=== PATIENT | male | born 1955 | race Caucasian/White ===

== ENCOUNTER 2025-06-24 17:12 | Emergency (ER) | payer OTHER ==
[~2025-06-24 17:12] MED LIST: Iopamidol 300 61% 100 ML VIAL FS ONE
[2025-06-24] MEDS ORDERED: Ketorolac Tromethamine 30 MG (1 mL) VIAL ONE (18:08)
[2025-06-24] MEDS ORDERED: Ipratropium Bromide 2.5 ml Neb ONE ×2 (18:14→19:26)
[2025-06-24] MEDS ORDERED: Albuterol 2.5 MG (0.5 mL) NEB ONE ×2 (18:14→19:26)
[2025-06-24 18:22] LABS: #Basophils 0.04 10x3/uL (0.0-0.2); #Eosinophils 0.09 10x3/uL (0.0-0.5); #Monocytes 1.18 10x3/uL (0.0-1.1); #Neutrophils 5.71 10x3/uL (1.5-8.4); %Basophils 0.5 % (0.0-2.0); %Eosinophils 1.0 % (0.0-6.0); %Lymphocytes 18.8 % (18.0-47.0); %Monocytes 13.6 % (0.0-10.0); %Neutrophils 65.6 % (40.0-75.0); Hematocrit 24.7 % (38.8-50.0); Hemoglobin 7.7 g/dL (13.5-17.5); Mean Corpuscular Hemoglobin 23.5 pg (27.0-33.0); Mean Corpuscular Volume 75.5 fL (81.2-95.1); Platelet Count 300 10x3/uL (150-450); Red Blood Cell (RBC) Count 3.27 10x6/uL (4.32-5.72); White Blood Cell (WBC) Count 8.69 10x3/uL (3.5-10.5)
[2025-06-24 18:39] LABS: ALT (SGPT) 32 U/L (Less than 45); AST (SGOT) 50 U/L (11-34); Albumin 4.3 g/dL (3.1-4.5); Alkaline Phosphatase 54 U/L (40-110); Anion Gap 13 mmol/L (10-20); BUN (Urea Nitrogen) 39 mg/dL (8.4-25.7); Bilirubin, Total 0.2 mg/dL (0.3-1.2); Calc. Creatinine Clearance 0 mL/min (70-130); Calcium 9.2 mg/dL (7.8-10.44); Carbon Dioxide 24 mmol/L (23-31); Chloride 99 mmol/L (98-107); Globulin 3.2 g/dL (2.4-3.5); Glucose 87 mg/dL (80-115); Potassium 4.4 mmol/L (3.5-5.1); Sodium 132 mmol/L (136-145)
[2025-06-24] MEDS ORDERED: Acetaminophen 500 MG TAB ONE (19:16)
== END 2025-06-24 20:10 | disposition home or self-care (01) ==
LOC: CSHERS 17:12
DX: J44.1 Chronic obstructive pulmonary disease with (acute) exacerbation (principal); K08.89 Other specified disorders of teeth and supporting structures; D64.9 Anemia, unspecified; R79.89 Other specified abnormal findings of blood chemistry; I10 Essential (primary) hypertension; E78.00 Pure hypercholesterolemia, unspecified; K74.60 Unspecified cirrhosis of liver; F41.9 Anxiety disorder, unspecified; F32.A Depression, unspecified; Z87.891 Personal history of nicotine dependence
CPT/HCPCS: 70487; 71046; 80053; 85025; 93005; 94644; 94645; 94760; 96374; 96375; J1885; J2919; J7611; J7644; Q9967

== ENCOUNTER 2025-07-12 14:21 | Inpatient (IN) | payer OTHER ==
[2025-07-12 15:16] LABS: #Basophils 0.03 10x3/uL (0.0-0.2); #Eosinophils 0.06 10x3/uL (0.0-0.5); #Monocytes 1.07 10x3/uL (0.0-1.1); #Neutrophils 7.24 10x3/uL (1.5-8.4); %Basophils 0.3 % (0.0-2.0); %Eosinophils 0.6 % (0.0-6.0); %Lymphocytes 12.4 % (18.0-47.0); %Monocytes 11.1 % (0.0-10.0); %Neutrophils 75.2 % (40.0-75.0); Hematocrit 18.8 % (38.8-50.0); Hemoglobin 5.8 g/dL (13.5-17.5); Mean Corpuscular Hemoglobin 23.5 pg (27.0-33.0); Mean Corpuscular Volume 76.1 fL (81.2-95.1); Platelet Count 241 10x3/uL (150-450); Red Blood Cell (RBC) Count 2.47 10x6/uL (4.32-5.72); White Blood Cell (WBC) Count 9.63 10x3/uL (3.5-10.5)
[2025-07-12 15:19] LABS: ALT (SGPT) 26 U/L (Less than 45); AST (SGOT) 30 U/L (11-34); Albumin 3.4 g/dL (3.1-4.5); Alkaline Phosphatase 49 U/L (40-110); Anion Gap 11 mmol/L (10-20); BUN (Urea Nitrogen) 19 mg/dL (8.4-25.7); Bilirubin, Total 0.3 mg/dL (0.3-1.2); Calc. Creatinine Clearance 0 mL/min (70-130); Calcium 8.2 mg/dL (7.8-10.44); Carbon Dioxide 22 mmol/L (23-31); Chloride 110 mmol/L (98-107); Globulin 2.5 g/dL (2.4-3.5); Glucose 99 mg/dL (80-115); Magnesium 2.0 mg/dL (1.6-2.6); Potassium 3.9 mmol/L (3.5-5.1); Sodium 139 mmol/L (136-145)
[2025-07-12 15:53] LABS: Troponin I 0.698 ng/mL (< 0.028)
[2025-07-12 16:08] LABS: INR-International Normal Ratio 1.0; PTT 23.5 sec (22.0-33.0); Prothrombin Time 10.9 sec (9.5-12.1)
[2025-07-12] MEDS ORDERED: Pantoprazole 40 MG VIAL ONE (16:13)
[2025-07-12] MEDS ORDERED: Electrolyte Replacement Protocol 1 EACH FS PRN (20:45)
[2025-07-12] MEDS ORDERED: Calcium Carbonate 500 MG ChewTAB PO PRN (20:45)
[2025-07-12 21:59] VITALS: BMI 28.2
[2025-07-12] MEDS: Pantoprazole 40 MG VIAL IVP SCH (22:31)
[2025-07-12] MEDS: Magnesium 2 GM/50 ML BAG (IN WATER) ONE (22:37)
[2025-07-12] MEDS: Magnesium 2 GM/50 ML(in water) 2 GM in Premix 1 BAG IVPB SCH (22:42)
[2025-07-12 22:54] LABS: Troponin I 0.685 ng/mL (< 0.028)
[2025-07-12] MEDS ORDERED: Pantoprazole 80 MG, Admixture Fee 1 EACH in Sodium Chloride 0.9% 100 ML IVP SCH (23:00)
[2025-07-13 03:09] LABS: #Basophils Less than 0.03 10x3/uL (0.0-0.2); #Eosinophils Less than 0.03 10x3/uL (0.0-0.5); #Monocytes 0.21 10x3/uL (0.0-1.1); #Neutrophils 9.07 10x3/uL (1.5-8.4); %Basophils 0.1 % (0.0-2.0); %Eosinophils 0.0 % (0.0-6.0); %Lymphocytes 4.2 % (18.0-47.0); %Monocytes 2.1 % (0.0-10.0); %Neutrophils 91.9 % (40.0-75.0); Hematocrit 21.7 % (38.8-50.0); Hemoglobin 6.7 g/dL (13.5-17.5); Mean Corpuscular Hemoglobin 23.3 pg (27.0-33.0); Mean Corpuscular Volume 75.3 fL (81.2-95.1); Platelet Count 213 10x3/uL (150-450); Red Blood Cell (RBC) Count 2.88 10x6/uL (4.32-5.72); White Blood Cell (WBC) Count 9.87 10x3/uL (3.5-10.5)
[2025-07-13 03:48] LABS: ALT (SGPT) 25 U/L (Less than 45); AST (SGOT) 27 U/L (11-34); Albumin 3.5 g/dL (3.1-4.5); Alkaline Phosphatase 50 U/L (40-110); Anion Gap 12 mmol/L (10-20); BUN (Urea Nitrogen) 18 mg/dL (8.4-25.7); Bilirubin, Total 0.5 mg/dL (0.3-1.2); Calc. Creatinine Clearance 106 mL/min (70-130); Calcium 8.4 mg/dL (7.8-10.44); Carbon Dioxide 20 mmol/L (23-31); Chloride 109 mmol/L (98-107); Globulin 3.0 g/dL (2.4-3.5); Glucose 170 mg/dL (80-115); Magnesium 2.5 mg/dL (1.6-2.6); Potassium 4.3 mmol/L (3.5-5.1); Sodium 137 mmol/L (136-145)
[2025-07-13 04:07] LABS: Troponin I 0.567 ng/mL (< 0.028)
[2025-07-13 04:13] LABS: Cardiac Risk 2.4 (Less than 4.5); Cholesterol 124 mg/dl (< 200 Desired); HDL Cholesterol 52 mg/dL (>60 Neg Risk); LDL Cholesterol, Calculated 62 mg/dL; Triglycerides 48 mg/dL (Less than 150)
[2025-07-13] MEDS ORDERED: Lidocaine 1% PF 5 ML VIAL ONE (14:19)
[2025-07-13] MEDS ORDERED: PROPOFOL 40 ML ONE (14:19)
[2025-07-13 16:13] LABS: Iron 20 ug/dL (65-175); Iron Binding Capacity, Total 404 mcg/dL (261-462)
[2025-07-13] MEDS: GoLYTELY 4,000 ml Bottle PO SCH (17:26)
[2025-07-14 04:56] LABS: Hep B Surf Ag Non-Reactive S/CO (NonReactive)
[2025-07-14 08:33] LABS: #Basophils Less than 0.03 10x3/uL (0.0-0.2); #Eosinophils Less than 0.03 10x3/uL (0.0-0.5); #Monocytes 0.92 10x3/uL (0.0-1.1); #Neutrophils 8.37 10x3/uL (1.5-8.4); %Basophils 0.2 % (0.0-2.0); %Eosinophils 0.2 % (0.0-6.0); %Lymphocytes 7.9 % (18.0-47.0); %Monocytes 9.0 % (0.0-10.0); %Neutrophils 82.2 % (40.0-75.0); Hematocrit 24.8 % (38.8-50.0); Hemoglobin 7.8 g/dL (13.5-17.5); Mean Corpuscular Hemoglobin 24.1 pg (27.0-33.0); Mean Corpuscular Volume 76.5 fL (81.2-95.1); Platelet Count 215 10x3/uL (150-450); Red Blood Cell (RBC) Count 3.24 10x6/uL (4.32-5.72); White Blood Cell (WBC) Count 10.18 10x3/uL (3.5-10.5)
[2025-07-14 08:54] LABS: Anion Gap 14 mmol/L (10-20); BUN (Urea Nitrogen) 17 mg/dL (8.4-25.7); Calc. Creatinine Clearance 99 mL/min (70-130); Calcium 8.0 mg/dL (7.8-10.44); Carbon Dioxide 21 mmol/L (23-31); Chloride 112 mmol/L (98-107); Glucose 108 mg/dL (80-115); Potassium 3.9 mmol/L (3.5-5.1); Sodium 143 mmol/L (136-145)
[2025-07-14] MEDS: Furosemide 20 MG (2 mL) VIAL SLOW IVP SCH (09:01)
[2025-07-14] MEDS ORDERED: Lidocaine 1% PF 5 ML VIAL ONE (12:51)
[2025-07-14] MEDS ORDERED: PROPOFOL 40 ML ONE (12:51)
[2025-07-14] MEDS ORDERED: PROPOFOL 20 ML ONE (14:37)
[2025-07-14 14:49] LABS: HBSAB Concentration 117.47 mIU/mL; Hep B Core Total Ab NONREACTIVE (NonReactive); Hep B Core Total Index 0.07 S/CO (0-0.79)
[2025-07-14] MEDS ORDERED: Electrolyte Replacement Protocol 1 EACH FS PRN (20:01)
[2025-07-14] MEDS: Pantoprazole 40 MG DR.TAB PO SCH (20:03)
[2025-07-14] MEDS: Benztropine 1 MG TAB PO SCH (20:03)
[2025-07-14] MEDS: Ondansetron PF 4 MG/2 ML Vial IVP PRN (20:07)
[2025-07-14] MEDS: Acetaminophen 325 MG TAB PO PRN (20:08)
[2025-07-14 20:54] LABS: Magnesium 2.3 mg/dL (1.6-2.6)
[2025-07-15] MEDS: Melatonin 3 MG TAB PO SCH ×2 (02:35→22:25)
[2025-07-15 04:12] LABS: Hepatitis A Total ABS Positive (Negative)
[2025-07-15 04:55] LABS: #Basophils Less than 0.03 10x3/uL (0.0-0.2); #Eosinophils 0.08 10x3/uL (0.0-0.5); #Monocytes 0.57 10x3/uL (0.0-1.1); #Neutrophils 4.83 10x3/uL (1.5-8.4); %Basophils 0.2 % (0.0-2.0); %Eosinophils 1.2 % (0.0-6.0); %Lymphocytes 15.0 % (18.0-47.0); %Monocytes 8.8 % (0.0-10.0); %Neutrophils 74.5 % (40.0-75.0); Hematocrit 25.1 % (38.8-50.0); Hemoglobin 7.5 g/dL (13.5-17.5); Mean Corpuscular Hemoglobin 23.7 pg (27.0-33.0); Mean Corpuscular Volume 79.4 fL (81.2-95.1); Platelet Count 190 10x3/uL (150-450); Red Blood Cell (RBC) Count 3.16 10x6/uL (4.32-5.72); White Blood Cell (WBC) Count 6.48 10x3/uL (3.5-10.5)
[2025-07-15 05:13] LABS: ALT (SGPT) 28 U/L (Less than 45); AST (SGOT) 35 U/L (11-34); Albumin 3.1 g/dL (3.1-4.5); Alkaline Phosphatase 46 U/L (40-110); Anion Gap 9 mmol/L (10-20); BUN (Urea Nitrogen) 18 mg/dL (8.4-25.7); Bilirubin, Total 0.5 mg/dL (0.3-1.2); Calc. Creatinine Clearance 95 mL/min (70-130); Calcium 8.3 mg/dL (7.8-10.44); Carbon Dioxide 26 mmol/L (23-31); Chloride 109 mmol/L (98-107); Globulin 2.7 g/dL (2.4-3.5); Glucose 127 mg/dL (80-115); Potassium 3.9 mmol/L (3.5-5.1); Sodium 140 mmol/L (136-145)
[2025-07-15] MEDS: DULoxetine 30 MG CAP PO SCH (08:56)
[2025-07-15] MEDS ORDERED: Sodium Ferric Gluconate 250 MG in Sodium Chloride 0.9% 250 ML 250 ML IVPB SCH (10:30)
[2025-07-15] MEDS: Sodium Ferric Gluconate 250 MG in Sodium Chloride 0.9% 250 ML 250 ML IVPB SCH (14:43)
[2025-07-16 04:42] LABS: Hematocrit 28.0 % (38.8-50.0); Hemoglobin 8.7 g/dL (13.5-17.5)
[2025-07-16 17:14] LABS: Hep C PCR-Quant HCV Not Detected IU/mL (.)
[2025-07-17 05:42] LABS: #Basophils Less than 0.03 10x3/uL (0.0-0.2); #Eosinophils 0.19 10x3/uL (0.0-0.5); #Monocytes 0.63 10x3/uL (0.0-1.1); #Neutrophils 5.63 10x3/uL (1.5-8.4); %Basophils 0.3 % (0.0-2.0); %Eosinophils 2.6 % (0.0-6.0); %Lymphocytes 10.5 % (18.0-47.0); %Monocytes 8.6 % (0.0-10.0); %Neutrophils 76.5 % (40.0-75.0); Hematocrit 30.7 % (38.8-50.0); Hemoglobin 9.5 g/dL (13.5-17.5); Mean Corpuscular Hemoglobin 24.6 pg (27.0-33.0); Mean Corpuscular Volume 79.5 fL (81.2-95.1); Platelet Count 233 10x3/uL (150-450); Red Blood Cell (RBC) Count 3.86 10x6/uL (4.32-5.72); White Blood Cell (WBC) Count 7.35 10x3/uL (3.5-10.5)
[2025-07-17] MEDS: Lisinopril 20 MG TAB PO SCH (08:43)
[2025-07-17 11:50] LABS: EliA Vaculitis New Method **** NEW METHOD ****; Mitochondrial Ab 0.7 U/mL (<4 Negative)
[2025-07-17 16:13] LABS: Smooth Muscle Total ABS 5 Units (0-19)
[2025-07-18 04:24] LABS: Hematocrit 31.0 % (38.8-50.0); Hemoglobin 9.5 g/dL (13.5-17.5)
[2025-07-19] MEDS: cefTRIAXone\\ROCEPHIN 2 GM in Sodium Chloride 0.9% 100 ML IVPB SCH (12:49)
[2025-07-19 16:25] VITALS: BMI 28.2
[2025-07-19] MEDS: diphenhydrAMINE 25 MG CAP PO PRN (23:01)
[2025-07-20] MEDS: GoLYTELY 4,000 ml Bottle PO SCH (17:00)
[2025-07-21] MEDS: metroNIDAZOLE 500 MG TAB PO SCH (00:57)
[2025-07-21 03:48] LABS: #Basophils 0.03 10x3/uL (0.0-0.2); #Eosinophils 0.14 10x3/uL (0.0-0.5); #Monocytes 0.88 10x3/uL (0.0-1.1); #Neutrophils 4.07 10x3/uL (1.5-8.4); %Basophils 0.5 % (0.0-2.0); %Eosinophils 2.2 % (0.0-6.0); %Lymphocytes 17.1 % (18.0-47.0); %Monocytes 14.1 % (0.0-10.0); %Neutrophils 65.1 % (40.0-75.0); Hematocrit 36.6 % (38.8-50.0); Hemoglobin 11.3 g/dL (13.5-17.5); Mean Corpuscular Hemoglobin 25.2 pg (27.0-33.0); Mean Corpuscular Volume 81.5 fL (81.2-95.1); Platelet Count 220 10x3/uL (150-450); Red Blood Cell (RBC) Count 4.49 10x6/uL (4.32-5.72); White Blood Cell (WBC) Count 6.25 10x3/uL (3.5-10.5)
[2025-07-21 04:05] LABS: ALT (SGPT) 30 U/L (Less than 45); AST (SGOT) 26 U/L (11-34); Albumin 3.6 g/dL (3.1-4.5); Alkaline Phosphatase 71 U/L (40-110); Anion Gap 12 mmol/L (10-20); BUN (Urea Nitrogen) 15 mg/dL (8.4-25.7); Bilirubin, Total 0.4 mg/dL (0.3-1.2); Calc. Creatinine Clearance 94 mL/min (70-130); Calcium 9.6 mg/dL (7.8-10.44); Carbon Dioxide 28 mmol/L (23-31); Chloride 102 mmol/L (98-107); Globulin 3.5 g/dL (2.4-3.5); Glucose 102 mg/dL (80-115); Potassium 4.3 mmol/L (3.5-5.1); Sodium 138 mmol/L (136-145)
[2025-07-21] MEDS ORDERED: Bupivacaine/Epinephrine 0.25% 30 ML VIAL ONE (09:32)
[2025-07-21] MEDS ORDERED: Sevoflurane 250 ML INH ANEST BOTTLE ONE (09:32)
[2025-07-21] MEDS ORDERED: PROPOFOL 20 ML ONE (10:13)
[2025-07-21] MEDS ORDERED: Lidocaine 1% PF 5 ML VIAL ONE (10:13)
[2025-07-21] MEDS ORDERED: Rocuronium Bromide 10 MG/ML (10ML VIAL) ONE ×2 (10:13→11:49)
[2025-07-21] MEDS ORDERED: Bupivacaine HCl 0.5%/Epinephrine 1:200,000/PF 30 ml Vial ONE (11:12)
[2025-07-21] MEDS ORDERED: Glycopyrrolate 0.2 MG/ML 5 ML SYRINGE ONE (11:30)
[2025-07-21] MEDS ORDERED: PHENYLEPHRINE-NS 100 MCG/ML 10 ML SYRINGE ONE (11:32)
[2025-07-21] MEDS ORDERED: SUGAMMADEX SODIUM 200 MG/2 ML VIAL ONE (15:12)
[2025-07-21] MEDS: Ketorolac Tromethamine 30 MG (1 mL) VIAL IVP SCH (18:12)
[2025-07-21] MEDS: HYDROcodone/Acetaminophen 5/325 mg Tablet PO PRN (18:43)
[2025-07-22 04:08] LABS: #Basophils Less than 0.03 10x3/uL (0.0-0.2); #Eosinophils Less than 0.03 10x3/uL (0.0-0.5); #Monocytes 0.78 10x3/uL (0.0-1.1); #Neutrophils 5.78 10x3/uL (1.5-8.4); %Basophils 0.1 % (0.0-2.0); %Eosinophils 0.1 % (0.0-6.0); %Lymphocytes 9.7 % (18.0-47.0); %Monocytes 10.6 % (0.0-10.0); %Neutrophils 79.0 % (40.0-75.0); Hematocrit 31.2 % (38.8-50.0); Hemoglobin 9.7 g/dL (13.5-17.5); Mean Corpuscular Hemoglobin 25.3 pg (27.0-33.0); Mean Corpuscular Volume 81.5 fL (81.2-95.1); Platelet Count 196 10x3/uL (150-450); Red Blood Cell (RBC) Count 3.83 10x6/uL (4.32-5.72); White Blood Cell (WBC) Count 7.33 10x3/uL (3.5-10.5)
[2025-07-22 04:23] LABS: Anion Gap 11 mmol/L (10-20); BUN (Urea Nitrogen) 25 mg/dL (8.4-25.7); Calc. Creatinine Clearance 78 mL/min (70-130); Calcium 8.5 mg/dL (7.8-10.44); Carbon Dioxide 27 mmol/L (23-31); Chloride 103 mmol/L (98-107); Glucose 106 mg/dL (80-115); Potassium 4.1 mmol/L (3.5-5.1); Sodium 137 mmol/L (136-145)
[2025-07-22] MEDS: D5 1/2 NS w/20 mEq KCL 1,000 ML IV SCH (09:59)
[2025-07-23 03:45] LABS: #Basophils Less than 0.03 10x3/uL (0.0-0.2); #Eosinophils 0.08 10x3/uL (0.0-0.5); #Monocytes 0.62 10x3/uL (0.0-1.1); #Neutrophils 3.69 10x3/uL (1.5-8.4); %Basophils 0.4 % (0.0-2.0); %Eosinophils 1.5 % (0.0-6.0); %Lymphocytes 19.1 % (18.0-47.0); %Monocytes 11.3 % (0.0-10.0); %Neutrophils 67.2 % (40.0-75.0); Hematocrit 32.2 % (38.8-50.0); Hemoglobin 9.9 g/dL (13.5-17.5); Mean Corpuscular Hemoglobin 25.4 pg (27.0-33.0); Mean Corpuscular Volume 82.8 fL (81.2-95.1); Platelet Count 218 10x3/uL (150-450); Red Blood Cell (RBC) Count 3.89 10x6/uL (4.32-5.72); White Blood Cell (WBC) Count 5.49 10x3/uL (3.5-10.5)
[2025-07-23 04:04] LABS: Anion Gap 10 mmol/L (10-20); BUN (Urea Nitrogen) 16 mg/dL (8.4-25.7); Calc. Creatinine Clearance 90 mL/min (70-130); Calcium 8.7 mg/dL (7.8-10.44); Carbon Dioxide 27 mmol/L (23-31); Chloride 104 mmol/L (98-107); Glucose 105 mg/dL (80-115); Magnesium 2.0 mg/dL (1.6-2.6); Potassium 4.0 mmol/L (3.5-5.1); Sodium 137 mmol/L (136-145)
[2025-07-23] MEDS: Magnesium 2 GM/50 ML(in water) 2 GM in Premix 1 BAG IVPB SCH (08:35)
[2025-07-23 12:55] VITALS: BP 111/59; TEMP 97.5
== END 2025-07-23 14:24 | disposition home or self-care (01) | DRG 329 ==
LOC: CSHERS 14:21 → CSHTELE 20:37
PROVIDERS: ADMIT Internal Medicine; ATTEND Family Medicine
PROC: 30233N1 Transfusion of Nonautologous Red Blood Cells into Peripheral Vein, Percutaneous Approach (ICD-10-PCS; 2025-07-12)
PROC: 0DJ08ZZ Inspection of Upper Intestinal Tract, Via Natural or Artificial Opening Endoscopic (ICD-10-PCS; principal; 2025-07-16)
PROC: 0DBM8ZZ Excision of Descending Colon, Via Natural or Artificial Opening Endoscopic (ICD-10-PCS; 2025-07-16)
PROC: 0DBL8ZZ Excision of Transverse Colon, Via Natural or Artificial Opening Endoscopic (ICD-10-PCS; 2025-07-16)
PROC: 0DBK8ZX Excision of Ascending Colon, Via Natural or Artificial Opening Endoscopic, Diagnostic (ICD-10-PCS; 2025-07-16)
PROC: 3E03329 Introduction of Other Anti-infective into Peripheral Vein, Percutaneous Approach (ICD-10-PCS; 2025-07-19)
PROC: 0DTF4ZZ Resection of Right Large Intestine, Percutaneous Endoscopic Approach (ICD-10-PCS; 2025-07-21)
PROC: 8E0W4CZ Robotic Assisted Procedure of Trunk Region, Percutaneous Endoscopic Approach (ICD-10-PCS; 2025-07-21)
DX: K92.2 Gastrointestinal hemorrhage, unspecified (principal); I21.A1 Myocardial infarction type 2; J96.01 Acute respiratory failure with hypoxia; D62 Acute posthemorrhagic anemia; K63.3 Ulcer of intestine; C18.9 Malignant neoplasm of colon, unspecified; K74.60 Unspecified cirrhosis of liver; B18.2 Chronic viral hepatitis C; E78.5 Hyperlipidemia, unspecified; E78.00 Pure hypercholesterolemia, unspecified; I10 Essential (primary) hypertension; J44.9 Chronic obstructive pulmonary disease, unspecified; F41.9 Anxiety disorder, unspecified; N40.0 Benign prostatic hyperplasia without lower urinary tract symptoms; F31.9 Bipolar disorder, unspecified; D50.9 Iron deficiency anemia, unspecified; K64.8 Other hemorrhoids; I48.91 Unspecified atrial fibrillation; Z87.442 Personal history of urinary calculi; Z98.890 Other specified postprocedural states; Z90.49 Acquired absence of other specified parts of digestive tract; Z87.891 Personal history of nicotine dependence; Z88.5 Allergy status to narcotic agent; Z88.8 Allergy status to other drugs, medicaments and biological substances
CPT/HCPCS: 36415; 36416; 36430; 71045; 74177; 76705; 80048; 80053; 80061; 82103; 82105; 82378; 82728; 83036; 83516; 83540; 83550; 83735; 83880; 84100; 84484; 85014; 85018; 85025; 85610; 85730; 86015; 86704; 86706; 86708; 86850; 86900; 86901; 87340; 87426; 87522; 88305; 88309; 93005; 93306; 94640; 94760; 94762; 96374; 96375; C1889; J0696; J1885; J1940; J2270; J2405; J2470; J2704; J2916; J2919; J3010; J3475; J3480; J7050; J7120; J7620; J7626; P9016; S2900